=== PATIENT | female | born 1950 | race Caucasian/White ===

== ENCOUNTER 2016-07-31 01:11 | Observation (INO) | payer BC, OTHER ==
[2016-07-31] MEDS ORDERED: Hydrocortisone INJ* 100 MG VIAL IV ONE ×2 (01:31→01:36)
[2016-07-31] MEDS ORDERED: Acetaminophen TAB* 325 MG PO ONE (01:37)
[2016-07-31] MEDS: NS 0.9% 1000 ML* 2,000 ML IV ONE (02:00)
[2016-07-31 02:48] LABS: Add Diff/Slide Review? Slide Review Added; Comments Flag Yes; Hematocrit 38 % (35-47); Hemoglobin 11.5 g/dl (12.0-16.0); Mean Corpuscular HGB Conc 30 g/dl (31-36); Mean Corpuscular Hemoglobin 24 pg (27-31); Mean Corpuscular Volume 80 fL (80-97); Mean Platelet Volume 7 um3 (7.4-10.4); Red Blood Count 4.73 10^6/ul (4.0-5.4); Red Cell Distribution Width 21 % (10.5-15); White Blood Count 12.3 10^3/ul (3.5-10.8)
[2016-07-31 03:00] LABS: Albumin 3.4 g/dL (3.2-5.2); BUN/Creatinine Ratio 35.1 (8-20); Calcium 8.3 mg/dL (8.6-10.3); EGFR African American 77.1 (>60); Globulin 3.6 g/dL (2-4); Potassium 4.3 mmol/L (3.5-5.0); Total Bilirubin 0.4 mg/dL (0.2-1.0)
[2016-07-31] MEDS ORDERED: cefTRIAXone VIAL(*) 1,000 MG in NS 0.9% 50 ML* 50 ML IVPB ONE (03:07)
[2016-07-31 03:16] LABS: Eosinophils % 1 % (0-6); Immature Granulocytes 20 % (0-9); Myelocytes % 1 % (0-1); Neutrophil % 73 % (38-83); RBC Morphology Normal (Normal); Reactive Lymph % 2 % (0-6)
[2016-07-31 03:41] LABS: Urine Bacteria 3+ (Absent); Urine Bilirubin Negative (Negative); Urine Glucose Negative (Negative); Urine Nitrite Positive (Negative)
[2016-07-31] MEDS ORDERED: Acetaminophen TAB* 325 MG PO PRN ×2 (03:46→08:42)
[2016-07-31] MEDS ORDERED: Albuterol HFA INHALER* 8 gm MDI INH PRN (03:46)
[2016-07-31] MEDS ORDERED: Ondansetron INJ* 2 MG/ML VIAL IV PRN (03:48)
--- NOTE | 2016-07-31 04:58 | ED ---
Zahraa Barbosa Claudia, scribed for Medina Bates MD on 07/31/16 at 0133 . Complex/Multi-Sys Presentation - HPI Summary HPI Summary: 65 year old female presents to the ED with N/V/D and fever since this am. Pt notes sudden onset of Sx. She notes 10 bout of diarrhea and 3-4 bouts of emesis during the day today. Pt denies dysuria and PMHx of CHF. Pt also denies being on any antibiotics but has been taking prednisone. Pt does not note any aggravating or alleviating Sx. - History Of Current Complaint Time Seen by Provider: 07/31/16 01:20 Hx Obtained From: Patient Onset/Duration: Sudden Onset, Lasting Days, Still Present Timing: Constant Associated Signs And Symptoms: Positive: Nausea, Vomiting, Diarrhea, Fever - Allergies/Home Medications Allergies/Adverse Reactions: Allergies Allergy/AdvReac Type Severity Reaction Status Date / Time Amoxicillin [From Augmentin] AdvReac Severe SEVERE Verified 11/26/15 07:54 DIARRHEA Clavulanic Acid AdvReac Severe SEVERE Verified 11/26/15 07:54 [From Augmentin] DIARRHEA Erythromycin AdvReac Nausea Verified 11/26/15 07:54 Morphine AdvReac Nausea Verified 11/26/15 07:54 Home Medications: Home Medications Iron 65 mg PO SEE INSTRUCTIONS 07/31/16 [History Confirmed 07/31/16] Methotrexate TAB* 20 mg PO WEEKLY 07/31/16 [History Confirmed 07/31/16] PMH/Surg Hx/FS Hx/Imm Hx Previously Healthy: Yes Endocrine/Hematology History: Reports: Hx Anemia - OFF AND ON, Cardiovascular History: Reports: Hx Hypertension - CONTROL WITH MEDS, Other Cardiovascular Problems/Disorders - cholesterol control with medication Denies: Hx Congestive Heart Failure Respiratory History: Reports: Hx Sleep Apnea, Other Respiratory Problems/ Disorders - HX OF BRONCHITIS, SINUSITIS, RHINITIS IN PAST GI History: Denies: Other GI Disorders History: Reports: Hx Kidney Stones - HX OF (LAST ONE ON THE RIGHT) 2014, R/T MEDICATION, Other Problems/Disorders - stones Denies: Hx Dialysis, Hx Renal Disease Musculoskeletal History: Reports: Hx Arthritis - RHEUMATOID ARTHRITIS AND OSTEOARTHRITIS, Hx Rheumatoid Arthritis, Hx Osteoporosis, Other Musculoskeletal History - RA Sensory History: Reports: Hx Contacts or Glasses - READING GLASSES Denies: Hx Hearing Aid Opthamlomology History: Reports: Hx Contacts or Glasses - READING GLASSES - Surgical History Surgery Procedure, Year, and Place: [place] [facility] [place] BENIGN RIGHT BREAST LUMPECTOMY, OFFICE. 2013 LEFT HIP TOTAL REPLACEMENT, [facility] [place]. BONE SPUR REMOVED RIGHT BIG TOE YEARS AGO, OFFICE. KIDNEY STONE EXTRACTION, [facility]. 2015 CYSTOSCOPY RIGHT RETROGRADE, RIGHT URETERAL STENT INSERTION, [facility], [facility] [place]x Anesthesia Reactions: No Infectious Disease History: Denies: Traveled Outside the [place] in Last 30 Days - Family History Known Family History: Positive: Cardiac Disease - Social History Occupation: Employed Full-time Lives: With Family Alcohol Use: Rare Substance Use Type: Reports: None Smoking Status (MU): Never Smoked Tobacco Review of Systems Positive: Fever Eyes: Negative ENT: Negative Cardiovascular: Negative Respiratory: Negative Positive: Vomiting, Diarrhea, Nausea Genitourinary: Negative Musculoskeletal: Negative Skin: Negative Neurological: Negative Psychological: Normal All Other Systems Reviewed And Are Negative: Yes Physical Exam Triage Information Reviewed: Yes Vital Signs On Initial Exam: Initial Vitals Temp Pulse Resp BP Pulse Ox 101.5 F 122 16 137/68 95 07/31/16 01:20 07/31/16 01:20 07/31/16 01:20 07/31/16 01:20 07/31/16 01:20 Vital Signs Reviewed: Yes Appearance: Positive: Well-Appearing, No Pain Distress Skin: Positive: Warm, Skin Color Reflects Adequate Perfusion, Dry Eyes: Positive: EOMI, PRINCE Neck: Positive: Supple, Nontender Respiratory/Lung Sounds: Positive: Clear to Auscultation, Breath Sounds Present. Negative: Rales, Rhonchi, Wheezes Cardiovascular: Positive: RRR. Negative: Murmur, Rub, Leg Edema Left, Leg Edema Right Abdomen Description: Positive: Nontender, Soft. Negative: Distended, Guarding Musculoskeletal: Positive: Strength/ROM Intact Neurological: Positive: Sensory/Motor Intact, Alert, Oriented to Person Place, Time, CN Intact II-III Psychiatric: Positive: Affect/Mood Appropriate Diagnostics - Vital Signs Vital Signs Temp Pulse Resp BP Pulse Ox 07/31/16 03:37 95 07/31/16 03:30 124 24 120/55 95 07/31/16 03:15 102.0 F 07/31/16 03:00 125 23 123/63 94 07/31/16 02:15 132/77 07/31/16 02:10 101.5 F 127 25 137/72 98 07/31/16 02:00 26 137/72 07/31/16 01:30 124 16 145/70 98 07/31/16 01:26 124 97 07/31/16 01:24 137/68 07/31/16 01:20 101.5 F 122 16 137/68 95 - Laboratory Lab Results: Lab Results 07/31/16 07/31/16 07/31/16 Range/Units 02:13 02:30 02:30 WBC 12.3 H (3.5-10.8) 10^3/ul RBC 4.73 (4.0-5.4) 10^6/ul Hgb 11.5 L (12.0-16.0) g/dl Hct 38 (35-47) % MCV 80 (80-97) fL MCH 24 L (27-31) pg MCHC 30 L (31-36) g/dl RDW 21 H (10.5-15) % Plt Count 515 H (150-450) 10^3/ul MPV 7 L (7.4-10.4) um3 Immature Gran % (Auto) 20 H (0-9) % Neut % (Auto) 93.9 H (38-83) % Lymph % (Auto) 1.8 L (25-47) % [place] % (Auto) 3.0 (1-9) % Eos % (Auto) 0.5 (0-6) % Baso % (Auto) 0.8 (0-2) % Absolute Neuts (auto) 11.6 H (1.5-7.7) 10^3/ul Absolute Lymphs (auto) 0.2 L (1.0-4.8) 10^3/ul Absolute Monos (auto) 0.4 (0-0.8) 10^3/ul Absolute Eos (auto) 0.1 (0-0.6) 10^3/ul Absolute Basos (auto) 0.1 (0-0.2) 10^3/ul Absolute Nucleated RBC 0 10^3/ul Neutrophils % 73 (38-83) % Band Neutrophils % 19 H (0-8) % Lymphocytes % 2 L (25-47) % Reactive Lymphs % 2 (0-6) % Monocytes % 2 (0-13) % Eosinophils % 1 (0-6) % Myelocytes % 1 (0-1) % Nucleated RBC % 0 Normal RBC Morphology Normal (Normal) INR (Anticoag Therapy) 1.10 (0.89-1.11) Sodium (133-145) mmol/L Potassium (3.5-5.0) mmol/L Chloride (101-111) mmol/L Carbon Dioxide (22-32) mmol/L Anion Gap (2-11) mmol/L BUN (6-24) mg/dL Creatinine (0.51-0.95) mg/dL Est GFR ( Amer) (>60) Est GFR (Non-Af Amer) (>60) BUN/Creatinine Ratio (8-20) Glucose (70-100) mg/dL Lactic Acid (0.5-2.0) mmol/L Calcium (8.6-10.3) mg/dL Total Bilirubin (0.2-1.0) mg/dL AST (13-39) U/L ALT (7-52) U/L Alkaline Phosphatase (34-104) U/L Troponin I (<0.04) ng/mL Total Protein (6.4-8.9) g/dL Albumin (3.2-5.2) g/dL Globulin (2-4) g/dL Albumin/Globulin Ratio (1-3) Urine Color Urine Appearance Urine pH (5-9) Ur Specific [place] (1.010-1.030) Urine Protein (Negative) Urine Ketones (Negative) Urine Blood (Negative) Urine Nitrate (Negative) Urine Bilirubin (Negative) Urine Urobilinogen (Negative) Ur Leukocyte Esterase (Negative) Urine WBC (Auto) (Absent) Urine RBC (Auto) (Absent) Ur Squamous Epith Cells (Absent) Urine Bacteria (Absent) Hyaline Casts (Absent) Urine Glucose (Negative) Influenza A (Rapid) Negative (Negative) Influenza B (Rapid) Negative (Negative) 07/31/16 07/31/16 07/31/16 Range/Units 02:30 02:30 03:20 WBC (3.5-10.8) 10^3/ul RBC (4.0-5.4) 10^6/ul Hgb (12.0-16.0) g/dl Hct (35-47) % MCV (80-97) fL MCH (27-31) pg MCHC (31-36) g/dl RDW (10.5-15) % Plt Count (150-450) 10^3/ul MPV (7.4-10.4) um3 Immature Gran % (Auto) (0-9) % Neut % (Auto) (38-83) % Lymph % (Auto) (25-47) % [place] % (Auto) (1-9) % Eos % (Auto) (0-6) % Baso % (Auto) (0-2) % Absolute Neuts (auto) (1.5-7.7) 10^3/ul Absolute Lymphs (auto) (1.0-4.8) 10^3/ul Absolute Monos (auto) (0-0.8) 10^3/ul Absolute Eos (auto) (0-0.6) 10^3/ul Absolute Basos (auto) (0-0.2) 10^3/ul Absolute Nucleated RBC 10^3/ul Neutrophils % (38-83) % Band Neutrophils % (0-8) % Lymphocytes % (25-47) % Reactive Lymphs % (0-6) % Monocytes % (0-13) % Eosinophils % (0-6) % Myelocytes % (0-1) % Nucleated RBC % Normal RBC Morphology (Normal) INR (Anticoag Therapy) (0.89-1.11) Sodium 137 (133-145) mmol/L Potassium 4.3 (3.5-5.0) mmol/L Chloride 107 (101-111) mmol/L Carbon Dioxide 21 L (22-32) mmol/L Anion Gap 9 (2-11) mmol/L BUN 33 H (6-24) mg/dL Creatinine 0.94 (0.51-0.95) mg/dL Est GFR ( Amer) 77.1 (>60) Est GFR (Non-Af Amer) 60.0 (>60) BUN/Creatinine Ratio 35.1 H (8-20) Glucose 120 H (70-100) mg/dL Lactic Acid 1.9 (0.5-2.0) mmol/L Calcium 8.3 L (8.6-10.3) mg/dL Total Bilirubin 0.40 (0.2-1.0) mg/dL AST 11 L (13-39) U/L ALT 10 (7-52) U/L Alkaline Phosphatase 67 (34-104) U/L Troponin I 0.00 (<0.04) ng/mL Total Protein 7.0 (6.4-8.9) g/dL Albumin 3.4 (3.2-5.2) g/dL Globulin 3.6 (2-4) g/dL Albumin/Globulin Ratio 0.9 L (1-3) Urine Color Tamiko Urine Appearance Cloudy Urine pH 5.0 (5-9) Ur Specific [place] 1.017 (1.010-1.030) Urine Protein 1+(30 mg/dl) H (Negative) Urine Ketones Negative (Negative) Urine Blood Negative (Negative) Urine Nitrate Positive H (Negative) Urine Bilirubin Negative (Negative) Urine Urobilinogen Negative (Negative) Ur Leukocyte Esterase Negative (Negative) Urine WBC (Auto) 2+(11-20/hpf) H (Absent) Urine RBC (Auto) 2+(6-10/hpf) H (Absent) Ur Squamous Epith Cells Present H (Absent) Urine Bacteria 3+ H (Absent) Hyaline Casts Present H (Absent) Urine Glucose Negative (Negative) Influenza A (Rapid) (Negative) Influenza B (Rapid) (Negative) Result Diagrams: 07/31/16 02:30 07/31/16 02:30 Lab Statement: Any lab studies that have been ordered have been reviewed, and results considered in the medical decision making process. - CT ABD/PELVIS CT Interpretation: Positive (See Comments) CT Interpretation Completed By: Radiologist - EKG 0141 Cardiac Rate: NL EKG Rhythm: Sinus Tachycardia - 129 beats/min ST Segment: Normal - no ST elevation Complex Multi-Symp Course/Dx Course Of Treatment: 66 yo female immunosupressed with rheumatoid arthritis, here with fever, n,v,d. Pt given 30cc/kg iv bolus and ceftriaxone as well as stress steroids given her chronic steroid use. Pt seen by Dr. Paige and brought into hospital as an obv - Diagnoses Provider Diagnoses: Gastroenteritis, Fever - Physician Notifications Discussed Care Of Patient With: Dr. Paige is paged to discuss the care of the patient. Patient is discussed with Dr. Paige whom will come down to see the pt and family. 3:10am. Dr. Paige accepts for admission to [facility] [place]. 3:24am Discharge - Discharge Plan Condition: Stable Disposition: ADMITTED TO [facility] Referrals: Heraclio Pelletier MD [Primary Care Provider] - The documentation as recorded by the Zahraa baeza Claudia accurately reflects the service I personally performed and the decisions made by me, Medina Bates MD.
--- NOTE | 2016-07-31 05:17 | HP ---
HISTORY AND PHYSICAL: DATE OF ADMISSION: 07/31/16 CHIEF COMPLAINT: Diarrhea. HISTORY OF PRESENT ILLNESS: The patient is a 65-year-old woman, who said yesterday morning she started having the runs. It was very watery; in fact, she says it was water. It came on without even eating. The last thing she ate before this happened was a BLT at about 12:30. She had chills and nausea and vomiting as well. She had some abdominal pain with little bit of cramping. She started drinking a lot of Pedialyte at about 3:30 and continued to do so until about to . Her daughter was a nurse practitioner, who came over to try to help her, but then the patient vomited up Pedialyte on her bed. She has been tachycardic with her heart rate in the 120s and she could not lift her head up the pillow. She has had body aches and pains more so than usual her rheumatoid arthritis. PAST MEDICAL HISTORY: Significant for rheumatoid arthritis, hypertension, shingles, tenosynovitis of the right ring finger. PAST SURGICAL HISTORY: Significant for ureteroscopy, left total hip replacement , tenosynovectomy, and tendon transfer, right ring finger. CURRENT MEDICATIONS: Include: 1. Methotrexate 20 mg p.o. weekly. 2. Prednisone 5 mg twice daily. 3. Celebrex 200 mg twice daily. 4. Lisinopril 10 mg daily. 5. Vitamin D3 1000 units in the morning. 6. Iron 65 mg daily. 7. Albuterol inhaler 2 puffs every 4 hours as needed. 8. Tylenol Extra Strength 500 mg daily as needed. 9. Xeljanz 5 mg twice daily. ALLERGIES: She has no known drug allergies. FAMILY HISTORY: Mother at 83 of . Father at 69 of brain tumor. SOCIAL HISTORY: No tobacco, rare alcohol, no recreational drug use. She works for [employer]. She is . Her , Fei Bowen, is her healthcare proxy. She has 3 children. REVIEW OF SYSTEMS: A 14-point review of systems was completed with the patient. All pertinent positives and negatives are in the history of present illness, otherwise is negative. PHYSICAL EXAMINATION GENERAL: A pleasant woman, lying in bed, in no acute distress. VITAL SIGNS: Temperature 101.5 degrees, heart rate beats per minute, respiratory rate 25 breaths per minute, pulse ox 98% on room air, blood pressure 137/72. HEENT: Normocephalic, atraumatic. Pupils are equal, round, and reactive to light. Moist mucous membranes. NECK: Supple. No JVD, bruits, palpable thyroid, or lymphadenopathy. CHEST: Clear to auscultation and percussion bilaterally. CARDIOVASCULAR: S1, S2 appreciated. Regular rate and rhythm. ABDOMEN: Positive bowel sounds in all 4 quadrants. Soft, nontender, and nondistended. EXTREMITIES: No cyanosis, clubbing, or edema. +2 peripheral pulses bilaterally. NEURO: Alert and oriented x3. Moves all extremities. SKIN: No rashes or abnormalities. DIAGNOSTIC STUDIES/LAB DATA: White count is 12.3, hemoglobin 11.5, hematocrit 38, platelets are 515. Sodium 137, potassium 4.3, chloride 107, CO2 21, BUN 30 , creatinine 0.94, glucose 120. INR 1.10. Influenza is negative. EKG shows sinus tachycardia at rate of 129 beats per minute, left axis deviation , left ventricular hemiblock. No acute ST-T wave changes. Abdomen and pelvis CT shows diarrheal illness. ASSESSMENT AND PLAN: 1. Nausea, vomiting, diarrhea, likely gastroenteritis, probably viral. We will hold off on antibiotics. The patient will receive Rocephin 50 mg IV, hydrocortisone in ED. We will hydrate with normal saline 125 cc an hour. Zofran p.r.n. for nausea and symptomatic treatment. If the patient does not respond, consider antibiotics with her history of rheumatoid arthritis and immunosuppressants. 2. Rheumatoid arthritis. Consider all medications except Xeljanz. 3. Hypertension. Continue lisinopril. 4. FEN. Regular diet. 5. DVT prophylaxis. Heparin subcu. 6. The patient is a full code. TIME SPENT: Over 75 minutes was spent on this H and P, more than 40 minutes was spent in direct [id number] contact with the patient in evaluation, physical exam, counseling, and coordination of care. CC: Dr. Heraclio Pelletier * [id number]/CPS #: [id number] MTDD
[2016-07-31] MEDS: Heparin VIAL(*) 5000 UNITS/ML VIAL (FIVE THOUSAND) SUBCUT SCH ×3 (05:32→20:14)
--- NOTE | 2016-07-31 08:04 | RAD ---
INDICATION: Fever COMPARISON: None TECHNIQUE: An AP portable view obtained at 0145 hours is submitted. Examination is mildly rotated. FINDINGS: Bones/Soft Tissues: There are no acute bony findings. Cardiomediastinal: The cardiomediastinal silhouette is normal. Lungs: There are no infiltrates. Pleura: There are no pleural effusions. Other: None IMPRESSION: NO ACTIVE DISEASE.
--- NOTE | 2016-07-31 08:12 | RAD ---
INDICATION: Left flank abdominal pain. COMPARISON: Comparison is made with a prior CT of the abdomen and pelvis from December 06, 2013. TECHNIQUE: A CT scan of the abdomen and pelvis was performed without intravenous or oral contrast. Contiguous axial sections were obtained from the lung bases through the symphysis pubis. Images were reconstructed in the coronal and sagittal planes. FINDINGS: There is mild dependent bilateral lower lobe subsegmental atelectasis. No pleural effusion is present. The liver and spleen are normal in size without significant focal abnormality on this noncontrast study. Note is made of small calcified gallstones. No gallbladder wall thickening is seen. The pancreas appears to be within normal limits. The adrenal glands and kidneys are normal in size. No renal calculi or hydronephrosis is seen. No ureteral or bladder calculi are seen. The aorta is normal in caliber without significant calcific plaque. No significant enlarged retroperitoneal lymph nodes are seen. The stomach, small and large bowel appear nondistended. The appendix is within normal limits. There is diffuse liquid stool noted within the colon suggesting the possibility of a diarrheal illness. There is mild descending and sigmoid diverticulosis without evidence for diverticulitis. No free intraperitoneal air or fluid is seen. There is a small sclerotic lesion in the posterior right iliac bone which is unchanged from the prior exam and likely an incidental finding. The patient is status post total left hip replacement surgery. There is severe osteoarthritic change in the right hip. No other focal osseous abnormalities are seen. IMPRESSION: 1. NO EVIDENCE FOR RENAL CALCULI OR HYDRONEPHROSIS. 2. DIFFUSE LIQUID STOOL SUGGESTIVE OF A DIARRHEAL ILLNESS. 3. CHOLELITHIASIS. 4. STATUS POST TOTAL LEFT HIP REPLACEMENT SURGERY, SEVERE OSTEOARTHRITIC CHANGE IN THE RIGHT HIP.
[2016-07-31] MEDS: Ferrous Sulfate TAB* 325 MG PO SCH (08:30)
[2016-07-31] MEDS: predniSONE TAB* 5 MG PO SCH ×2 (08:31→17:14)
[2016-07-31] MEDS: Cholecalciferol TAB* 1000 UNITS PO SCH (08:31)
--- NOTE | 2016-07-31 08:56 | PN ---
Subjective Date of Service: 07/31/16 Interval History: Pt is feeling quite a bit better today. She is interested in eating breakfast. She has stopped vomiting. She had 1 diarrheal stool since being admitted. She denies any dysuria but has had perhaps increased frequency. Objective Active Medications: Acetaminophen (Tylenol Tab*) 650 mg PO Q4H PRN PRN Reason: PAIN Albuterol (Ventolin Hfa Inhaler*) 2 puff INH Q4H PRN PRN Reason: SOB/WHEEZING Celecoxib (Celebrex Cap*) 200 mg PO BID COUNTS INCLUDE 234 BEDS AT THE [facility] Cholecalciferol (Vitamin D Tab*) 1,000 units PO QAM COUNTS INCLUDE 234 BEDS AT THE [facility] Last Admin: 07/31/16 08:31 Dose: 1,000 units Ferrous Sulfate (Ferrous Sulfate Tab*) 325 mg PO DAILY COUNTS INCLUDE 234 BEDS AT THE [facility] Last Admin: 07/31/16 08:30 Dose: 325 mg Heparin Sodium (Porcine) (Heparin Vial(*)) 5,000 units SUBCUT Q8HR COUNTS INCLUDE 234 BEDS AT THE [facility] Last Admin: 07/31/16 05:32 Dose: 5,000 units Sodium Chloride (Ns 0.9% 1000 Ml*) 1,000 mls @ 125 mls/hr IV PER RATE COUNTS INCLUDE 234 BEDS AT THE [facility] Lisinopril (Prinivil Tab*) 10 mg PO QAM COUNTS INCLUDE 234 BEDS AT THE [facility] Ondansetron HCl (Zofran Inj*) 4 mg IV Q4H PRN PRN Reason: NAUSEA Prednisone (Deltasone Tab*) 5 mg PO BID WITH MEALS COUNTS INCLUDE 234 BEDS AT THE [facility] Last Admin: 07/31/16 08:31 Dose: 5 mg Vital Signs 07/31/16 07/31/16 07/31/16 04:30 04:35 05:11 Temperature 99.0 F 99.0 F Pulse Rate 117 113 113 Respiratory 25 22 22 Rate Blood Pressure 119/59 119/61 119/61 (mmHg) O2 Sat by Pulse 91 95 95 Oximetry 07/31/16 07:43 Temperature 98.2 F Pulse Rate 100 Respiratory 18 Rate Blood Pressure 111/57 (mmHg) O2 Sat by Pulse 95 Oximetry Oxygen Devices in Use Now: None Appearance: Middle aged female sitting up in bed, NAD Eyes: No Scleral Icterus Ears/Nose/Mouth/Throat: Mucous Membranes Moist Respiratory: Symmetrical Chest Expansion and Respiratory Effort, Clear to Auscultation Cardiovascular: NL Sounds; No Murmurs; No JVD, No Edema, - - tachycardic but regular Abdominal: NL Sounds; No Tenderness; No Distention Extremities: No Clubbing, Cyanosis Skin: No Rash or Ulcers, No Nodules or Sclerosis Neurological: Alert and Oriented x 3 Result Diagrams: 07/31/16 02:30 07/31/16 02:30 Additional Lab and Data: Lab Results 07/31/16 07/31/16 07/31/16 Range/Units 02:13 02:30 02:30 WBC 12.3 H (3.5-10.8) 10^3/ul RBC 4.73 (4.0-5.4) 10^6/ul Hgb 11.5 L (12.0-16.0) g/dl Hct 38 (35-47) % MCV 80 (80-97) fL MCH 24 L (27-31) pg MCHC 30 L (31-36) g/dl RDW 21 H (10.5-15) % Plt Count 515 H (150-450) 10^3/ul MPV 7 L (7.4-10.4) um3 Immature Gran % (Auto) 20 H (0-9) % Neut % (Auto) 93.9 H (38-83) % Lymph % (Auto) 1.8 L (25-47) % [place] % (Auto) 3.0 (1-9) % Eos % (Auto) 0.5 (0-6) % Baso % (Auto) 0.8 (0-2) % Absolute Neuts (auto) 11.6 H (1.5-7.7) 10^3/ul Absolute Lymphs (auto) 0.2 L (1.0-4.8) 10^3/ul Absolute Monos (auto) 0.4 (0-0.8) 10^3/ul Absolute Eos (auto) 0.1 (0-0.6) 10^3/ul Absolute Basos (auto) 0.1 (0-0.2) 10^3/ul Absolute Nucleated RBC 0 10^3/ul Neutrophils % 73 (38-83) % Band Neutrophils % 19 H (0-8) % Lymphocytes % 2 L (25-47) % Reactive Lymphs % 2 (0-6) % Monocytes % 2 (0-13) % Eosinophils % 1 (0-6) % Myelocytes % 1 (0-1) % Nucleated RBC % 0 Normal RBC Morphology Normal (Normal) INR (Anticoag Therapy) 1.10 (0.89-1.11) Sodium (133-145) mmol/L Potassium (3.5-5.0) mmol/L Chloride (101-111) mmol/L Carbon Dioxide (22-32) mmol/L Anion Gap (2-11) mmol/L BUN (6-24) mg/dL Creatinine (0.51-0.95) mg/dL Est GFR ( Amer) (>60) Est GFR (Non-Af Amer) (>60) BUN/Creatinine Ratio (8-20) Glucose (70-100) mg/dL Lactic Acid (0.5-2.0) mmol/L Calcium (8.6-10.3) mg/dL Total Bilirubin (0.2-1.0) mg/dL AST (13-39) U/L ALT (7-52) U/L Alkaline Phosphatase (34-104) U/L Troponin I (<0.04) ng/mL Total Protein (6.4-8.9) g/dL Albumin (3.2-5.2) g/dL Globulin (2-4) g/dL Albumin/Globulin Ratio (1-3) Urine Color Urine Appearance Urine pH (5-9) Ur Specific [place] (1.010-1.030) Urine Protein (Negative) Urine Ketones (Negative) Urine Blood (Negative) Urine Nitrate (Negative) Urine Bilirubin (Negative) Urine Urobilinogen (Negative) Ur Leukocyte Esterase (Negative) Urine WBC (Auto) (Absent) Urine RBC (Auto) (Absent) Ur Squamous Epith Cells (Absent) Urine Bacteria (Absent) Hyaline Casts (Absent) Urine Glucose (Negative) Influenza A (Rapid) Negative (Negative) Influenza B (Rapid) Negative (Negative) 07/31/16 07/31/16 07/31/16 Range/Units 02:30 02:30 03:20 WBC (3.5-10.8) 10^3/ul RBC (4.0-5.4) 10^6/ul Hgb (12.0-16.0) g/dl Hct (35-47) % MCV (80-97) fL MCH (27-31) pg MCHC (31-36) g/dl RDW (10.5-15) % Plt Count (150-450) 10^3/ul MPV (7.4-10.4) um3 Immature Gran % (Auto) (0-9) % Neut % (Auto) (38-83) % Lymph % (Auto) (25-47) % [place] % (Auto) (1-9) % Eos % (Auto) (0-6) % Baso % (Auto) (0-2) % Absolute Neuts (auto) (1.5-7.7) 10^3/ul Absolute Lymphs (auto) (1.0-4.8) 10^3/ul Absolute Monos (auto) (0-0.8) 10^3/ul Absolute Eos (auto) (0-0.6) 10^3/ul Absolute Basos (auto) (0-0.2) 10^3/ul Absolute Nucleated RBC 10^3/ul Neutrophils % (38-83) % Band Neutrophils % (0-8) % Lymphocytes % (25-47) % Reactive Lymphs % (0-6) % Monocytes % (0-13) % Eosinophils % (0-6) % Myelocytes % (0-1) % Nucleated RBC % Normal RBC Morphology (Normal) INR (Anticoag Therapy) (0.89-1.11) Sodium 137 (133-145) mmol/L Potassium 4.3 (3.5-5.0) mmol/L Chloride 107 (101-111) mmol/L Carbon Dioxide 21 L (22-32) mmol/L Anion Gap 9 (2-11) mmol/L BUN 33 H (6-24) mg/dL Creatinine 0.94 (0.51-0.95) mg/dL Est GFR ( Amer) 77.1 (>60) Est GFR (Non-Af Amer) 60.0 (>60) BUN/Creatinine Ratio 35.1 H (8-20) Glucose 120 H (70-100) mg/dL Lactic Acid 1.9 (0.5-2.0) mmol/L Calcium 8.3 L (8.6-10.3) mg/dL Total Bilirubin 0.40 (0.2-1.0) mg/dL AST 11 L (13-39) U/L ALT 10 (7-52) U/L Alkaline Phosphatase 67 (34-104) U/L Troponin I 0.00 (<0.04) ng/mL Total Protein 7.0 (6.4-8.9) g/dL Albumin 3.4 (3.2-5.2) g/dL Globulin 3.6 (2-4) g/dL Albumin/Globulin Ratio 0.9 L (1-3) Urine Color [place] Urine Appearance Cloudy Urine pH 5.0 (5-9) Ur Specific [place] 1.017 (1.010-1.030) Urine Protein 1+(30 mg/dl) H (Negative) Urine Ketones Negative (Negative) Urine Blood Negative (Negative) Urine Nitrate Positive H (Negative) Urine Bilirubin Negative (Negative) Urine Urobilinogen Negative (Negative) Ur Leukocyte Esterase Negative (Negative) Urine WBC (Auto) 2+(11-20/hpf) H (Absent) Urine RBC (Auto) 2+(6-10/hpf) H (Absent) Ur Squamous Epith Cells Present H (Absent) Urine Bacteria 3+ H (Absent) Hyaline Casts Present H (Absent) Urine Glucose Negative (Negative) Influenza A (Rapid) (Negative) Influenza B (Rapid) (Negative) Assess/Plan/Problems-Billing Ms Bowen is a 65 yo F who has a h/o RA on prednisone, methotrexate and xeljanz and HTN who presented to the ER with c/o marked diarrhea and vomiting and was admitted for symptomatic treatment of a presumed viral gastroenteritis. - Patient Problems (1) Gastroenteritis Current Visit: Yes Status: Acute Code(s): K52.9 - NONINFECTIVE GASTROENTERITIS AND COLITIS, UNSPECIFIED SNOMED Code(s): 31980471 Comment: Improving but she still had a liquid BM this AM. Continue IVF for persistent tachycardia. She is trying to eat this AM. Will monitor how she does. (2) UTI (urinary tract infection) Current Visit: Yes Status: Acute Comment: The patient's urinalysis is abnormal. Will continue ceftriaxone 1g IV daily for now. Await the urine culture. (3) HTN (hypertension) Current Visit: Yes Status: Acute Code(s): I10 - ESSENTIAL (PRIMARY) HYPERTENSION SNOMED Code(s): 82546218 Comment: BP is under good control. Continue usual home dose of lisinopril. (4) Rheumatoid arthritis Current Visit: Yes Status: Acute Code(s): M06.9 - RHEUMATOID ARTHRITIS, UNSPECIFIED SNOMED Code(s): 86061928 Comment: Continue prednisone. Hold methotrexate and xeljanz. (5) DVT prophylaxis Current Visit: Yes Status: Acute Code(s): DMW3815 - SNOMED Code(s): 980964616 Comment: SQ heparin (6) Full code status Current Visit: Yes Status: Acute Code(s): Z78.9 - OTHER SPECIFIED HEALTH STATUS SNOMED Code(s): 945161910
[2016-07-31] MEDS: Lisinopril TAB* 10 MG PO SCH (10:56)
[2016-07-31] MEDS: celeCOXIB CAP* 200 MG PO SCH ×2 (11:53→20:14)
[2016-07-31] MEDS: NS 0.9% 1000 ML* 1,000 ML IV SCH ×2 (13:04→22:08)
[2016-08-01] MEDS ORDERED: cefTRIAXone VIAL(*) 1,000 MG in NS 0.9% 50 ML* 50 ML IVPB SCH (03:00)
[2016-08-01] MEDS: Heparin VIAL(*) 5000 UNITS/ML VIAL (FIVE THOUSAND) SUBCUT SCH (05:39)
[2016-08-01] MEDS: NS 0.9% 1000 ML* 1,000 ML IV SCH (06:23)
[2016-08-01 07:34] VITALS: BP 143/79
[2016-08-01] MEDS: Ferrous Sulfate TAB* 325 MG PO SCH (08:53)
[2016-08-01] MEDS: Cholecalciferol TAB* 1000 UNITS PO SCH (08:53)
[2016-08-01] MEDS: Lisinopril TAB* 10 MG PO SCH (08:54)
[2016-08-01] MEDS: predniSONE TAB* 5 MG PO SCH (08:54)
[2016-08-01] MEDS: celeCOXIB CAP* 200 MG PO SCH (08:54)
--- NOTE | 2016-08-01 13:21 | PN ---
Subjective Date of Service: 08/01/16 Interval History: Pt feels much improved today. Ready to go home. No diarrhea at all today. Objective Active Medications: Acetaminophen (Tylenol Tab*) 650 mg PO Q4H PRN PRN Reason: PAIN Albuterol (Ventolin Hfa Inhaler*) 2 puff INH Q4H PRN PRN Reason: SOB/WHEEZING Celecoxib (Celebrex Cap*) 200 mg PO BID [facility] Last Admin: 08/01/16 08:54 Dose: 200 mg Cholecalciferol (Vitamin D Tab*) 1,000 units PO QAM [facility] Last Admin: 08/01/16 08:53 Dose: 1,000 units Ferrous Sulfate (Ferrous Sulfate Tab*) 325 mg PO DAILY [facility] Last Admin: 08/01/16 08:53 Dose: 325 mg Heparin Sodium (Porcine) (Heparin Vial(*)) 5,000 units SUBCUT Q8HR [facility] Last Admin: 08/01/16 05:39 Dose: 5,000 units Sodium Chloride (Ns 0.9% 1000 Ml*) 1,000 mls @ 125 mls/hr IV PER RATE [facility] Last Admin: 08/01/16 06:23 Dose: 125 mls/hr Ceftriaxone Sodium 1,000 mg/ (Sodium Chloride) 50 mls @ 200 mls/hr IVPB Q24H [facility] Last Admin: 08/01/16 03:33 Dose: 200 mls/hr Lisinopril (Prinivil Tab*) 10 mg PO QAM [facility] Last Admin: 08/01/16 08:54 Dose: 10 mg Ondansetron HCl (Zofran Inj*) 4 mg IV Q4H PRN PRN Reason: NAUSEA Prednisone (Deltasone Tab*) 5 mg PO BID WITH MEALS [facility] Last Admin: 08/01/16 08:54 Dose: 5 mg Vital Signs 07/31/16 07/31/16 07/31/16 16:01 20:00 23:36 Temperature 99.2 F 98.1 F Pulse Rate 93 77 Respiratory 17 18 16 Rate Blood Pressure 118/67 143/71 (mmHg) O2 Sat by Pulse 98 98 99 Oximetry 08/01/16 08/01/16 07:29 08:00 Temperature 97.8 F Pulse Rate 77 Respiratory 18 Rate Blood Pressure 143/79 (mmHg) O2 Sat by Pulse 100 100 Oximetry Oxygen Devices in Use Now: None Appearance: Middle aged female sitting up in bed, NAD Eyes: No Scleral Icterus Ears/Nose/Mouth/Throat: Mucous Membranes Moist Respiratory: Symmetrical Chest Expansion and Respiratory Effort, Clear to Auscultation Cardiovascular: NL Sounds; No Murmurs; No JVD, RRR, No Edema Abdominal: NL Sounds; No Tenderness; No Distention Extremities: No Clubbing, Cyanosis Skin: No Rash or Ulcers, No Nodules or Sclerosis Neurological: Alert and Oriented x 3 Result Diagrams: 07/31/16 02:30 07/31/16 02:30 Additional Lab and Data: Lab Results 07/31/16 07/31/16 07/31/16 Range/Units 02:13 02:30 02:30 WBC 12.3 H (3.5-10.8) 10^3/ul RBC 4.73 (4.0-5.4) 10^6/ul Hgb 11.5 L (12.0-16.0) g/dl Hct 38 (35-47) % MCV 80 (80-97) fL MCH 24 L (27-31) pg MCHC 30 L (31-36) g/dl RDW 21 H (10.5-15) % Plt Count 515 H (150-450) 10^3/ul MPV 7 L (7.4-10.4) um3 Immature Gran % (Auto) 20 H (0-9) % Neut % (Auto) 93.9 H (38-83) % Lymph % (Auto) 1.8 L (25-47) % [place] % (Auto) 3.0 (1-9) % Eos % (Auto) 0.5 (0-6) % Baso % (Auto) 0.8 (0-2) % Absolute Neuts (auto) 11.6 H (1.5-7.7) 10^3/ul Absolute Lymphs (auto) 0.2 L (1.0-4.8) 10^3/ul Absolute Monos (auto) 0.4 (0-0.8) 10^3/ul Absolute Eos (auto) 0.1 (0-0.6) 10^3/ul Absolute Basos (auto) 0.1 (0-0.2) 10^3/ul Absolute Nucleated RBC 0 10^3/ul Neutrophils % 73 (38-83) % Band Neutrophils % 19 H (0-8) % Lymphocytes % 2 L (25-47) % Reactive Lymphs % 2 (0-6) % Monocytes % 2 (0-13) % Eosinophils % 1 (0-6) % Myelocytes % 1 (0-1) % Nucleated RBC % 0 Normal RBC Morphology Normal (Normal) INR (Anticoag Therapy) 1.10 (0.89-1.11) Sodium (133-145) mmol/L Potassium (3.5-5.0) mmol/L Chloride (101-111) mmol/L Carbon Dioxide (22-32) mmol/L Anion Gap (2-11) mmol/L BUN (6-24) mg/dL Creatinine (0.51-0.95) mg/dL Est GFR ( Amer) (>60) Est GFR (Non-Af Amer) (>60) BUN/Creatinine Ratio (8-20) Glucose (70-100) mg/dL Lactic Acid (0.5-2.0) mmol/L Calcium (8.6-10.3) mg/dL Total Bilirubin (0.2-1.0) mg/dL AST (13-39) U/L ALT (7-52) U/L Alkaline Phosphatase (34-104) U/L Troponin I (<0.04) ng/mL Total Protein (6.4-8.9) g/dL Albumin (3.2-5.2) g/dL Globulin (2-4) g/dL Albumin/Globulin Ratio (1-3) Urine Color Urine Appearance Urine pH (5-9) Ur Specific [place] (1.010-1.030) Urine Protein (Negative) Urine Ketones (Negative) Urine Blood (Negative) Urine Nitrate (Negative) Urine Bilirubin (Negative) Urine Urobilinogen (Negative) Ur Leukocyte Esterase (Negative) Urine WBC (Auto) (Absent) Urine RBC (Auto) (Absent) Ur Squamous Epith Cells (Absent) Urine Bacteria (Absent) Hyaline Casts (Absent) Urine Glucose (Negative) Influenza A (Rapid) Negative (Negative) Influenza B (Rapid) Negative (Negative) 07/31/16 07/31/16 07/31/16 Range/Units 02:30 02:30 03:20 WBC (3.5-10.8) 10^3/ul RBC (4.0-5.4) 10^6/ul Hgb (12.0-16.0) g/dl Hct (35-47) % MCV (80-97) fL MCH (27-31) pg MCHC (31-36) g/dl RDW (10.5-15) % Plt Count (150-450) 10^3/ul MPV (7.4-10.4) um3 Immature Gran % (Auto) (0-9) % Neut % (Auto) (38-83) % Lymph % (Auto) (25-47) % [place] % (Auto) (1-9) % Eos % (Auto) (0-6) % Baso % (Auto) (0-2) % Absolute Neuts (auto) (1.5-7.7) 10^3/ul Absolute Lymphs (auto) (1.0-4.8) 10^3/ul Absolute Monos (auto) (0-0.8) 10^3/ul Absolute Eos (auto) (0-0.6) 10^3/ul Absolute Basos (auto) (0-0.2) 10^3/ul Absolute Nucleated RBC 10^3/ul Neutrophils % (38-83) % Band Neutrophils % (0-8) % Lymphocytes % (25-47) % Reactive Lymphs % (0-6) % Monocytes % (0-13) % Eosinophils % (0-6) % Myelocytes % (0-1) % Nucleated RBC % Normal RBC Morphology (Normal) INR (Anticoag Therapy) (0.89-1.11) Sodium 137 (133-145) mmol/L Potassium 4.3 (3.5-5.0) mmol/L Chloride 107 (101-111) mmol/L Carbon Dioxide 21 L (22-32) mmol/L Anion Gap 9 (2-11) mmol/L BUN 33 H (6-24) mg/dL Creatinine 0.94 (0.51-0.95) mg/dL Est GFR ( Amer) 77.1 (>60) Est GFR (Non-Af Amer) 60.0 (>60) BUN/Creatinine Ratio 35.1 H (8-20) Glucose 120 H (70-100) mg/dL Lactic Acid 1.9 (0.5-2.0) mmol/L Calcium 8.3 L (8.6-10.3) mg/dL Total Bilirubin 0.40 (0.2-1.0) mg/dL AST 11 L (13-39) U/L ALT 10 (7-52) U/L Alkaline Phosphatase 67 (34-104) U/L Troponin I 0.00 (<0.04) ng/mL Total Protein 7.0 (6.4-8.9) g/dL Albumin 3.4 (3.2-5.2) g/dL Globulin 3.6 (2-4) g/dL Albumin/Globulin Ratio 0.9 L (1-3) Urine Color [place] Urine Appearance Cloudy Urine pH 5.0 (5-9) Ur Specific [place] 1.017 (1.010-1.030) Urine Protein 1+(30 mg/dl) H (Negative) Urine Ketones Negative (Negative) Urine Blood Negative (Negative) Urine Nitrate Positive H (Negative) Urine Bilirubin Negative (Negative) Urine Urobilinogen Negative (Negative) Ur Leukocyte Esterase Negative (Negative) Urine WBC (Auto) 2+(11-20/hpf) H (Absent) Urine RBC (Auto) 2+(6-10/hpf) H (Absent) Ur Squamous Epith Cells Present H (Absent) Urine Bacteria 3+ H (Absent) Hyaline Casts Present H (Absent) Urine Glucose Negative (Negative) Influenza A (Rapid) (Negative) Influenza B (Rapid) (Negative) Assess/Plan/Problems-Billing Ms Bowen is a 65 yo F who has a h/o RA on prednisone, methotrexate and xeljanz and HTN who presented to the ER with c/o marked diarrhea and vomiting and was admitted for symptomatic treatment of a presumed viral gastroenteritis. - Patient Problems (1) Gastroenteritis Current Visit: Yes Status: Acute Code(s): K52.9 - NONINFECTIVE GASTROENTERITIS AND COLITIS, UNSPECIFIED SNOMED Code(s): 94734064 Comment: Resolved. She will follow at home. (2) UTI (urinary tract infection) Current Visit: Yes Status: Acute Comment: The patient grew E coli from her urine. Will d/c her home on bactrim DS 1 tab BID x 5 days. (3) HTN (hypertension) Current Visit: Yes Status: Acute Code(s): I10 - ESSENTIAL (PRIMARY) HYPERTENSION SNOMED Code(s): 51181561 Comment: BP is under good control. Continue usual home dose of lisinopril. (4) Rheumatoid arthritis Current Visit: Yes Status: Acute Code(s): M06.9 - RHEUMATOID ARTHRITIS, UNSPECIFIED SNOMED Code(s): 71370599 Comment: Continue prednisone. 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 (5) DVT prophylaxis Current Visit: Yes Status: Acute Code(s): QAH9788 - SNOMED Code(s): 589260142 Comment: SQ heparin (6) Full code status Current Visit: Yes Status: Acute Code(s): Z78.9 - OTHER SPECIFIED HEALTH STATUS SNOMED Code(s): 141611930 Status and Disposition: d/c home
--- NOTE | 2016-08-02 03:50 | DS ---
CC: Dr. Pelletier DISCHARGE SUMMARY: DATE OF ADMISSION: 07/31/16 DATE OF DISCHARGE: 08/01/16 PRIMARY CARE PROVIDER: Heraclio Pelletier MD PRINCIPAL DIAGNOSES: 1. Viral gastroenteritis. 2. Escherichia colitis urinary tract infection. SECONDARY DIAGNOSES: 1. Rheumatoid arthritis. 2. Hypertension. DISCHARGE MEDICATIONS: 1. Methotrexate 20 mg p.o. 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 2. Xeljanz 5 mg p.o. b.i.d. to be discussed with the primary care provider before starting. 3. Prednisone 5 mg p.o. b.i.d. 4. Celebrex 200 mg p.o. b.i.d. 5. Lisinopril 10 mg p.o. daily. 6. Vitamin D3 1000 units p.o. daily. 7. Iron 65 mg p.o. Wednesday, Wednesday, and Wednesday. 8. Albuterol 2 puffs inhaled q.4 hours p.r.n. shortness of breath. 9. Tylenol 500 mg p.o. daily p.r.n. pain. 10. Bactrim DS 1 tablet p.o. b.i.d. x10 doses. HOSPITAL COURSE: Ms. Bowen is a 65-year-old female who presented to the emergency room on 7 with complaints of nausea, vomiting, and diarrhea. The patient has a history of rheumatoid arthri tis and is on methotrexate and Xeljanz as well as chronic prednisone. The patient was admitted for symptomatic treatment of her viral gastroenteritis. The patient received aggressive IV fluid hydrat ion and antiemetic therapy. The patient quickly improved. The patient has now been without any daksha rrhea on the day of discharge. The patient's vomiting started prior to my seeing her in followup af ter her admission yesterday. The patient is feeling stable and ready for discharge home. The patient is also found to have an E. coli urinary tract infection. The patient was having symptom s of increased frequency prior to admission. The patient received 2 doses of ceftriaxone and will c ontinue on 5 more days of Bactrim DS 1 tablet p.o. b.i.d. In terms of the patient's chronic medical condition, she is going to be maintained on her usual home regimen outside of her methotrexate and Xeljanz, which she will discuss restarting with her rheumat ologist on Wednesday. FOLLOWUP CONCERNS: The patient is being discharged to home today, 08/01/16. She is to followup daylin Pelletier on 08/03/16 at 12:55 p.m. Activity level is as tolerated. Diet is regular. Conditio n on discharge is stable. TIME SPENT: Thirty-five minutes was spent discharging this patient. [id number]/[facility] #: [id number]
== END 2016-08-01 13:40 | disposition home or self-care (01) ==
LOC: ED 01:11 → MED 04:24
PROVIDERS: ADMIT Internal Medicine; ATTEND Hospitalist
DX: A08.4 Viral intestinal infection, unspecified (principal); N39.0 Urinary tract infection, site not specified; B96.20 Unspecified Escherichia coli [E. coli] as the cause of diseases classified elsewhere; M06.9 Rheumatoid arthritis, unspecified; I10 Essential (primary) hypertension
CPT/HCPCS: 36415; 71010; 74176; 80053; 81003; 81015; 83605; 84484; 85025; 85610; 87040; 87077; 87086; 87186; 87502; 93005; 94660; 94760; 96374; 99285; A9270-GY; G0378; J0696; J1644; J1720; J7512

== ENCOUNTER 2016-12-15 06:08 | Inpatient (IN) | payer MEDICARE, BC ==
--- NOTE | 2016-12-03 03:52 | HP ---
HISTORY AND PHYSICAL: DATE OF ADMISSION: 12/15/16 SURGICAL CARE: Right hip, is planned for 12/15/16, right total hip replacement. CHIEF COMPLAINT: Right hip region pain and limitation in movement. HISTORY OF PRESENT ILLNESS: This 66-year-old woman has rheumatoid arthritis in the right hip and in the last couple of months has been markedly more painful and disabling, and a right total hip replacement has been recommended. She has been seen and checked by her primary care and her research clerk, Dr. Mcgill. The plan is to stop her methotrexate and Xeljanz next week and she will continue her prednisone and her other medications as needed. PAST MEDICAL HISTORY: She has not had a heart attack. Does not have chest pain. She is currently using cane or a walker for the right hip pain and disability. Her left total hip replacement was done in January of 2014. MEDICATIONS: Other meds include: 1. Calcium. 2. Amoxicillin before dental work. 3. Leflunomide 10 mg by mouth once each day. 4. Prednisone 10 mg in the morning and 5 mg in the evening. 5. Celebrex 200 mg 1 twice a day. 6. Vitamin D3. 7. Tylenol. 8. Lisinopril 10 mg each day. 9. Xeljanz. 10. Methotrexate as noted above. ALLERGIES: No known drug allergies. PHYSICAL EXAMINATION GENERAL: Distressed with her right hip region and limping on the right. The cranial nerves are grossly intact. HEENT: The head is NC/AT. LUNGS: Clear bilaterally. HEART: Regular, S1 and S2 normal. I do not appreciate murmurs or gallops. ABDOMEN: Soft and nontender. There is no organomegaly. EXTREMITIES: The patient is able to do a straight leg raise on the right and flex the right hip to 70 to 80 degrees. The right dorsalis pedis pulse is 2+. The right knee, leg, ankle, and foot, no marked swelling. NEUROLOGIC: The cranial nerves are grossly intact. IMPRESSION: Rheumatoid arthritis of the right hip. PLAN: We have reviewed goals, risks, and complications of the surgical care, including leg length inequality and infection and we will proceed with the right total hip replacement, 12/15/16. [id number]/[facility] #: [id number] [facility]
[~2016-12-15 06:08] MED LIST: Buffered Lidocaine 0.9% SYRIN* 5 ML/SYR SYRINGE INTRADERM ONE; Buffered Lidocaine 0.9% SYRIN* 5 ML/SYR SYRINGE ONE; Sodium Citrate/Citric Acid* 15 ML UDC ONE; Sodium Citrate/Citric Acid* 15 ML UDC PO ONE
[2016-12-15 06:26] LABS: Hematocrit 36 % (35-47); Hemoglobin 11.5 g/dl (12.0-16.0); Mean Corpuscular HGB Conc 32 g/dl (31-36); Mean Corpuscular Hemoglobin 27 pg (27-31); Mean Corpuscular Volume 84 fL (80-97); Mean Platelet Volume 7 um3 (7.4-10.4); Red Cell Distribution Width 20 % (10.5-15); White Blood Count 11.4 10^3/ul (3.5-10.8)
[2016-12-15] MEDS ORDERED: ceFAZolin 2 GM in NS 0.9% 100 ml IVPB ONE (07:00)
[2016-12-15] MEDS ORDERED: fentaNYL* 50 MCG/ML 2 ML VIAL (100 MCG VIAL) ONE ×4 (07:44→12:03)
[2016-12-15] MEDS ORDERED: Dexamethasone IV* 4 MG/ML 1 ML (4 MG) ONE (08:17)
[2016-12-15] MEDS ORDERED: Propofol* 10 MG/ML 20 ML BTL IV PUSH ONE ×2 (08:17→08:37)
[2016-12-15] MEDS ORDERED: Succinylcholine* 20 MG/ML 10 ML VIAL ONE (08:17)
[2016-12-15] MEDS ORDERED: Cisatracurium* 2 MG/ML MDV 5 ML ONE (08:34)
[2016-12-15] MEDS ORDERED: Bupivacaine 0.25% SDV* 30 ML ONE (09:03)
[2016-12-15] MEDS ORDERED: Bupivacaine 0.5% W/EPI SDV* 30 ML VIAL ONE (09:09)
[2016-12-15] MEDS ORDERED: DiMENhydriNATE IV* 50 MG/ML VIAL IV PUSH PRN (09:22)
[2016-12-15] MEDS ORDERED: Ondansetron INJ* 2 MG/ML VIAL ONE ×2 (09:59→11:53)
[2016-12-15] MEDS ORDERED: Ketorolac INJ* 30 MG/ML 1 ML VIAL ONE (09:59)
[2016-12-15] MEDS ORDERED: Neostigmine Methylsulfate* 2 MG/2 ML SYRINGE ONE (10:01)
[2016-12-15] MEDS ORDERED: Glycopyrrolate IV* 0.2 MG/ML 1 ML VIAL ONE (10:01)
[2016-12-15] MEDS ORDERED: Magnesium Hydroxide LIQ* 30 ML UDC PO PRN (10:43)
[2016-12-15] MEDS ORDERED: diPHENhydraMINE IV* 50 MG/ML 1 ml VIAL (BENADRYL) IV PRN (10:43)
[2016-12-15] MEDS ORDERED: Bisacodyl SUPP* 10 MG SUPP PR PRN (10:43)
[2016-12-15] MEDS ORDERED: oxyCODONE/Acetamin 5/325 MG* TAB PO PRN (10:43)
[2016-12-15] MEDS ORDERED: Morphine INJ* 2 MG/ML 1 ML SYRINGE IV PRN (10:43)
[2016-12-15] MEDS: fentaNYL* 50 MCG/ML 2 ML VIAL (100 MCG VIAL) IV PRN ×5 (10:47→12:04)
[2016-12-15] MEDS ORDERED: Albuterol HFA INHALER* 8 gm MDI INH PRN (10:58)
--- NOTE | 2016-12-15 11:30 | RAD ---
HISTORY: Status post right hip arthroplasty COMPARISONS: November 19, 2016 VIEWS: 1, Single frontal view of the pelvis FINDINGS: BONE DENSITY: Normal. BONES: The patient is status post bilateral hip arthroplasty. On this single frontal projection, there is no appreciable hardware failure or osteolysis. JOINTS: The patient is status post bilateral hip arthroplasty ALIGNMENT: There is no dislocation. SOFT TISSUES: There is peripheral arterial calcification. OTHER FINDINGS: None. IMPRESSION: STATUS POST BILATERAL HIP ARTHROPLASTY PERIPHERAL ARTERIAL DISEASE
[2016-12-15] MEDS ORDERED: oxyCODONE/Acetamin 5/325 MG* TAB ONE (11:43)
[2016-12-15] MEDS: oxyCODONE/Acetamin 5/325 MG* TAB PO PRN ×3 (11:43→20:55)
[2016-12-15] MEDS: Ondansetron INJ* 2 MG/ML VIAL IV PRN (11:54)
[2016-12-15] MEDS ORDERED: DiMENhydriNATE IV* 50 MG/ML VIAL ONE (12:03)
--- NOTE | 2016-12-15 13:47 | OP ---
OPERATIVE NOTE:* ADDENDUM: CC: [facility] [id number]/[facility] #: [id number] MTDD
--- NOTE | 2016-12-15 14:04 | OP ---
CC: [facility] * DATE OF OPERATION: 12/15/16 - ROOM #342 DATE OF : 52. SURGEON: Kole Brandt MD. BIOLOGIST: YAW Gordon, loan officer assistant; and YAW Acevedo ANESTHESIOLOGIST: Dr. Don Carolina. ANESTHESIA: Endotracheal tube, general. PRE-OP DIAGNOSIS: Severe arthritis of the right hip. POST-OP DIAGNOSIS: Severe arthritis of the right hip. OPERATIVE PROCEDURE: Right total hip replacement; this is a metal on poly total hip replacement. COMPLICATIONS: There were no complications. DRAINS: There were no drains. ESTIMATED BLOOD LOSS: 200 mL. REPLACEMENT: Crystalloid fluids, and local anesthetic right hip Marcaine 0.5% with epinephrine 30 mL and 20 mL of Marcaine 0.25% without epinephrine skin and subcutaneous tissues. COMPONENTS UTILIZED: Cari Continuum cup 46 with 1 screw and elevated liner located posteriorly for a 28 head. On the femoral side, a standard M/L taper size 12.5 with a -3.5, 28 mm cobalt chrome head. INDICATION: Severe arthritis, it has been no longer responsive to non- operative care. She was severely disabled with pain, limitations to movements and a surgical care was recommended. Preoperatively she was just able to do a straight leg raise getting her heel about an inch off the bed. DESCRIPTION OF PROCEDURE: The patient was brought to the operating room and placed on the operating room table in the supine position. Following the administration of anesthetic, a Toscano catheter was inserted, the patient was then carefully placed in the left lateral position with a folded blanket under the left greater trochanter. The pelvis was secured over the ASIS and the sacrum with hip positioner. The groin was sealed off and then the right hip was given a preliminary chlorhexidine prep and then the final formal from the right hip to the foot. After prepping, draping, and sealing off, we did our universal protocol time- out confirming Dian Bowen and the plan for right total hip replacement. We all agreed and we proceeded out. The hip was carefully approached with a posterior lateral skin incision, going from the greater trochanter distally for 1-1/2 inches and proximally for 2-1/2 to 3 inches. The skin and subcu divided down to the fascia carter, iliotibial band. Careful hemostasis checked and achieved throughout the case utilizing electrocautery. The fascia carter was opened in line with the skin incision, a Charnley retractor was carefully inserted, some trochanteric bursectomy was completed and then a careful posterior approach to the hip was done. The gluteus medius was retracted anteriorly with a blunt Hohmann retractor and then we got deep enough the gluteus medius was also retracted anteriorly and completely protected with a blunt Hohmann retractor. The piriformis and the conjoint tendon were both released from their piriformis fossa insertions, each was marked with a separate #2 Surgidac suture and this suture also included the underlying capsular flap. Careful hemostasis was achieved as we did the posterior approach to the hip. The hip had slightly cloudy fluid and quite marked synovitis with pedunculated fronds, and there was one loose piece of fibrinous material that looked like it could be cartilaginous, but I think fibrinous and it was irregular, 3 to 4 mm in thickness, 1 cm in width, and 2.5 cm in length. The hip was dislocated without difficulty. The femoral neck was cut about a finger or a centimeter proximal to the lesser trochanter. The head and neck removed. The head was completely eburnated on the superior surface. The acetabulum retractor, sharp Hohmann's anteriorly and posteriorly, blunt Hohmann superiorly and inferiorly, we removed the remainder of the labrum. The medial soft tissues were excised, these were also inflamed and then some inferior synovectomy was completed. Reaming was done 40 through 46 and at 46, we had nice bleeding subchondral and cancellous bone. A 46 Continuum cup was impacted into position in 45 degrees of abduction, 20 degrees of anteversion; it had a nice tight fit, and a screw was placed superiorly. An elevator liner was then placed posteriorly for a 28 mm head. On the femoral side we used the canal finder. Broaching was done 4 through 12.5, at 12.5 we did a trial reduction with a +0 head and neck and the tissues were somewhat tight with this reduction. The 12.5 standard M/L taper stem was impacted into position in 15 to 20 degrees of anteversion. And then I elected to use -3.5, 28 mm cobalt chrome head that was placed on a cleaned trunnion. The hip was reduced without difficulty. Careful hemostasis was checked and achieved utilizing electrocautery during the closure. The piriformis and the conjoint tendon were reapproximated through 2 drill holes to the posterior superior greater trochanter. The soft tissues were also swabbed as we closed with lap sponges to discourage leaving debris. After the final irrigation and final closure of the fascia carter, 30 mL of Marcaine 0.5% with epinephrine was poured in the wound. A lap sponge was soaked in the Marcaine and moved to more distally and superiorly and superficially and the wound to touch all the tissues. I did not think drains were necessary. The skin and subcu were infiltrated with Marcaine 0.25% without epinephrine 20 to 30 mL as well. The fascia carter closed with interrupted #1 Polysorb in a figure-of- eight fashion, the same with fascia gluteus jean, the deep and superficial subcu closed with 0 and then 2-0 Polysorb and then yanet on the skin and a couple of vertical mattresses were the skin wanted to invert. The skin was washed and dried and covered with Betadine-soaked Release, followed by sterile gauze, ABD pads, and then paper tape. The patient was carefully returned to the supine position in the hospital bed and to the recovery room in stable and satisfactory condition, having tolerated the procedure very well. [id number]/[facility] #: [id number] [facility] [id number]/[facility] #: [id number] CHETNA
[2016-12-15] MEDS: ceFAZolin 1 GM VIAL(*) 1 GM in NS 0.9% 50 ML* 50 ML IVPB SCH (16:15)
[2016-12-15] MEDS ORDERED: predniSONE TAB* 5 MG PO SCH (21:00)
[2016-12-15] MEDS: Docusate CAP* 100 MG PO SCH (21:18)
[2016-12-16] MEDS: ceFAZolin 1 GM VIAL(*) 1 GM in NS 0.9% 50 ML* 50 ML IVPB SCH ×2 (00:06→07:25)
[2016-12-16] MEDS: oxyCODONE/Acetamin 5/325 MG* TAB PO PRN ×4 (06:05→23:30)
[2016-12-16 07:28] LABS: Hematocrit 28 % (35-47); Hemoglobin 8.6 g/dl (12.0-16.0)
[2016-12-16 07:39] LABS: BUN/Creatinine Ratio 24.4 (8-20); Calcium 8.4 mg/dL (8.6-10.3); EGFR African American 200.2 (>60); EGFR Non-African American 155.7 (>60); Potassium 3.8 mmol/L (3.5-5.0)
[2016-12-16] MEDS: Docusate CAP* 100 MG PO SCH ×2 (09:03→23:31)
[2016-12-16] MEDS: Aspirin TAB* 325 MG PO SCH (09:03)
[2016-12-16] MEDS: Lisinopril TAB* 10 MG PO SCH (09:04)
[2016-12-16] MEDS: predniSONE TAB* 5 MG PO SCH ×2 (09:04→17:10)
[2016-12-16] MEDS: Ondansetron INJ* 2 MG/ML VIAL IV PRN (10:42)
[2016-12-16] MEDS ORDERED: Scopolamine 1.5 mg* PATCH TRANSDERM SCH (15:00)
[2016-12-16] MEDS: Acetaminophen TAB* 325 MG PO PRN (17:10)
[2016-12-17] MEDS: oxyCODONE/Acetamin 5/325 MG* TAB PO PRN ×2 (05:54→23:33)
[2016-12-17 06:24] LABS: Hematocrit 28 % (35-47); Hemoglobin 9.3 g/dl (12.0-16.0)
[2016-12-17] MEDS: Aspirin TAB* 325 MG PO SCH (08:40)
[2016-12-17] MEDS: predniSONE TAB* 5 MG PO SCH ×2 (08:40→16:27)
[2016-12-17] MEDS: Docusate CAP* 100 MG PO SCH ×2 (08:41→21:19)
[2016-12-17] MEDS: Lisinopril TAB* 10 MG PO SCH (08:41)
[2016-12-17] MEDS: Acetaminophen TAB* 325 MG PO PRN ×2 (10:31→16:27)
[2016-12-18 05:26] LABS: Hematocrit 28 % (35-47)
[2016-12-18] MEDS: oxyCODONE/Acetamin 5/325 MG* TAB PO PRN (05:28)
[2016-12-18] MEDS: Lisinopril TAB* 10 MG PO SCH (08:16)
[2016-12-18] MEDS: Aspirin TAB* 325 MG PO SCH (08:16)
[2016-12-18] MEDS: predniSONE TAB* 5 MG PO SCH (08:16)
[2016-12-18] MEDS: Docusate CAP* 100 MG PO SCH (08:21)
[2016-12-18 08:22] VITALS: BP 153/73
--- NOTE | 2016-12-18 10:15 | PN ---
Progress Note - Progress Note Date of Service: 12/18/16 SOAP: Subjective: 66 y/o female s/p R HARSH by Dr. Herman 12/15. Patient working well with PT this AM , no complaints, questions. Eager for D/C home, VSS, afebrile overnight. Objective: General- Well appearing, NAD AO MSK- Dressing removed, incision c/d/i, minimal ecchymosis around incision site, not redressed as patient wishes to have a shower. + DF/PF b/l, PT 2+ b/l, sensation grossly intact R LE, neg homans R LE. Vital Signs Temp 98.2 F 12/18/16 07:12 Pulse 96 12/18/16 07:12 Resp 16 12/18/16 08:22 BP 153/73 12/18/16 07:12 Pulse Ox 98 12/18/16 08:38 Intake & Output 12/17/16 12/18/16 12/18/16 18:59 06:59 18:59 Intake Total 710 1690 620 Output Total 1300 1250 400 Balance -590 440 220 Intake: Oral 710 1690 620 Output: Urine 1300 1250 400 Other: Estimated Void Large # Bowel Movements 0 1 Estimated Stool Amount Medium Laboratory Results - last 24 hr 12/18/16 05:17 Hgb 9.0 L Hct 28 L Assessment: stable 66 y/o female s/p R HARSH by Dr. Herman 12/15. Plan: - D/C to home today - ASA 325mg daily for DVT prophylaxis - Follow up with Dr. Herman within 4-6 weeks - PT at home - Continue current pain regimen Active Medications Generic Name Dose Route Start Last Admin Trade Name Freq PRN Reason Stop Dose Admin Acetaminophen 650 mg 12/15/16 10:43 12/17/16 16:27 Tylenol Tab* PO 650 mg Q4H PRN Administration pain and temp Albuterol 2 puff 12/15/16 10:58 Ventolin Hfa Inhaler* INH Q4H PRN SOB/WHEEZING Aspirin 325 mg 12/16/16 09:00 12/18/16 08:16 Aspirin Tab* PO 325 mg DAILY SAYRA Administration Bisacodyl 10 mg 12/15/16 10:43 Dulcolax Supp* NC DAILY PRN constipation Diphenhydramine HCl 25 mg 12/15/16 10:43 Benadryl Iv* IV Q6H PRN itching or insomnia Docusate Sodium 100 mg 12/15/16 21:00 12/18/16 08:21 Colace Cap* PO Not Given BID SAYRA Lactated Ringer's 1,000 mls @ 100 mls/hr 12/15/16 11:00 12/16/16 09:44 Lactated Ringers 1000 Ml Bag* IV 100 mls/hr PER RATE SAYRA Administration Lactulose 30 ml 12/15/16 10:43 Lactulose* PO Q6H PRN constipation Lisinopril 10 mg 12/16/16 09:00 12/18/16 08:16 Prinivil Tab* PO 10 mg QAM SAYRA Administration Magnesium Hydroxide 30 ml 12/15/16 10:43 12/17/16 21:19 Milk Of Magnesia Liq* PO 30 ml Q6H PRN Administration constipation Morphine Sulfate 2 mg 12/15/16 10:43 Morphine Inj (Syringe)* IV Q2H PRN PAIN - UNCONTROLLED Ondansetron HCl 4 mg 12/15/16 10:43 12/16/16 10:42 Zofran Inj* IV 4 mg Q6H PRN Administration nausea Oxycodone/Acetaminophen 1 tab 12/15/16 10:43 12/18/16 05:28 Percocet 5/325 Tab* PO 1 tab Q3H PRN Administration PAIN - MODERATE Oxycodone/Acetaminophen 2 tab 12/15/16 10:43 Percocet 5/325 Tab* PO Q3H PRN PAIN - MODERATE Pharmacy Profile Note 1 note 12/19/16 15:00 Scopolomine Patch Remove* PATCH OFF Q72H SAYRA Prednisone 5 mg 12/16/16 08:00 12/18/16 08:16 Deltasone Tab* PO 5 mg BID WITH MEALS SAYRA Administration Scopolamine 1 patch 12/16/16 15:00 12/16/16 14:18 Transderm-Scop 1.5 Mg Patch* TRANSDERM 1 patch Q72H SAYRA Administration
--- NOTE | 2016-12-19 01:15 | DS ---
DISCHARGE SUMMARY: DATE OF ADMISSION: 12/15/16 DATE OF DISCHARGE: 12/18/16 ATTENDING PHYSICIAN: Dr. Brandt * (DICTATED BY YAW VIVAR) CHIEF COMPLAINT: 1. Right hip pain. 2. Rheumatoid arthritis. DISCHARGE DIAGNOSES: 1. Status post right total hip replacement. 2. Rheumatoid arthritis. PROCEDURE: Right total hip replacement. CONSULTATIONS: 1. Physical Therapy. 2. Occupational Therapy. BRIEF HISTORY: Ms. Bowen is a very pleasant 66-year-old female with a longstanding history of right hip pain due to her rheumatoid arthritis. She has elected to undergo right total hip arthroplasty on 12/15/[address] Brandt. HOSPITAL COURSE: Ms. Bowen was admitted to [facility] on 12/15/16 , where she underwent an uncomplicated right total hip replacement with metal on poly. There were no complications. Postoperatively, she recovered on the surgical short stay unit. On postoperative day 2, her Toscano was removed and she was voiding on her own without difficulty. She was advanced to a regular diet and her pain was controlled well with p.o. Percocet and Tylenol. She was restarted on her home medications. Her labs and vital signs remained stable. She was able to bear weight as tolerated on the right lower extremity. She advanced appropriately with physical therapy and occupational therapy. Her DVT was managed in-house with aspirin 325 mg. On postoperative day 3, she was orthopedically and medically stable for discharge to go home with home services. PHYSICAL EXAMINATION: General: Well-appearing, in no acute distress, alert and oriented, sitting in her chair comfortable. Vital signs on the date of discharge: Temperature 98.2, pulse 96, respirations 16, blood pressure 152/73, pulse oxygenation 98% on room air. Examination of the right lower extremity demonstrates a surgical incision on the posterior aspect of the hip. The incision is benign without erythema, drainage, or visible signs of infection. A sterile dressing was applied. She had active ankle dorsiflexion and plantarflexion with +2 palpable posterior tibial pulses. Negative Homans sign bilaterally. Sensation grossly intact to light touch. DIAGNOSTIC STUDIES/LAB DATA: Laboratory data on the date of discharge, H and H of 9.0 and 28. RADIOGRAPHS: Postoperative films taken on 12/15/16 of the pelvis show a bilateral hip arthroplasty. DISCHARGE MEDICATIONS: 1. Tylenol 650 mg every 4 hours as needed for pain not to exceed more than 4000 mg a day. 2. Proventil inhaler 2 puffs p.o. q.4 hours p.r.n. 3. Aspirin 325 mg p.o. daily. 4. Dulcolax 100 mg p.o. b.i.d. 5. Lisinopril 10 mg p.o. q.a.m. 6. Percocet 5/325 one tablet every 4 hours as needed for pain. 7. Prednisone 5 mg p.o. b.i.d. 8. Vitamin D3 supplementation 1000 units p.o. q.a.m. 9. Iron 65 mg per physician's instructions. 10. Methotrexate 20 mg injection weekly. 11. Xeljanz 5 mg p.o. b.i.d. 12. Celebrex 200 mg p.o. b.i.d. CONDITION ON DISCHARGE: Stable. DISCHARGE INSTRUCTIONS: Ms. Bowen is a very pleasant 66-year-old female, postoperative day 3, status post right total hip arthroplasty, which was uncomplicated. She is orthopedically and medically stable for discharge to home with home services. Her labs and vital signs are stable. She will restart her home medications and take aspirin 325 mg daily for DVT prophylaxis. She will remain weightbearing as tolerated on the right lower extremity and have home physical therapy twice a week. She will take Percocet as needed for pain control and Colace up to 3 times a day for constipation. She will follow up with Dr. Brandt in approximately 4 to 6 weeks for postoperative check and radiograph. She was instructed to go immediately to the ER should she develop chest pain or shortness of breath. Should she develop fever, increasing pain, or redness, she is to call the office immediately. YAW VIVAR [id number]/[facility] #: [id number] [facility]
[2016-12-19] MEDS ORDERED: Scopolomine PATCH Remove* 1 NOTE MISC PATCH OFF SCH (15:00)
== END 2016-12-18 10:40 | disposition home or self-care (01) | DRG 470 ==
LOC: AA 06:08 → SSU 12:54
PROVIDERS: ADMIT Orthopaedic Surgery; ATTEND Orthopaedic Surgery
PROC: 0SR902A Replacement of Right Hip Joint with Metal on Polyethylene Synthetic Substitute, Uncemented, Open Approach (ICD-10-PCS; principal; 2016-12-15 07:30)
DX: M06.9 Rheumatoid arthritis, unspecified (principal); D62 Acute posthemorrhagic anemia; Z79.1 Long term (current) use of non-steroidal anti-inflammatories (NSAID); Z79.52 Long term (current) use of systemic steroids; Z79.899 Other long term (current) drug therapy
CPT/HCPCS: 36415; 72170; 80048; 85014; 85018; 85025; 85610; 85730; 94760; A9270-GY; C1713; C1776; J0330; J0690; J1100; J1240; J1885; J2270; J2405; J2704; J3010; J7512